=== PATIENT | female | born 1965 | race Caucasian/White ===

== ENCOUNTER 2018-05-04 13:57 | Inpatient (IN) ==
--- NOTE | 2018-05-04 14:56 | Emergency Department Note ---
Disposition Clinical Impression: Facial numbness, Ptosis, right eyelid, Decreased patellar reflex Disposition: Admitted As Inpatient Condition: Fair Referrals: Shari Jacobs, CHILD CARE WORKER [Primary Care Provider] - Forms: ED Satisfaction Letter Time of Disposition: 16:34 General Adult HPI - General Chief complaint: ED Neuro Symptoms/Deficit Stated complaint: Neuro symptoms x1 week Time Seen by Provider: 05/04/18 14:17 Source: patient Limitations: no limitations Nursing Notes Reviewed: Yes Vital Signs Reviewed: Yes - History of Present Illness HPI Narrative: Patient presents to the ED from neurology. Patient has been having trouble for the past week. She has a drooping right eye. Numbness in her face. Numbness in her hands and wrists. She has been seen at [facility] and at her primary doctor's office. She had a head CT that was negative. She was diagnosed with a UTI at one point. Patient followed up with neurology today as an outpatient. They were concerned about myasthenia gravis. She states her blood test ruled that out. 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 Neurology requesting lumbar puncture and admission. Pain Scale: 7 - Related Data Previous Rx's Medication Instructions Recorded Indomethacin [Indocin] 25 mg PO Q6HR PRN #20 capsule 03/13/18 Penicillin VK 500 mg PO QID #40 tablet 03/13/18 Allergies Allergy/AdvReac Type Severity Reaction Status Date / Time No Known Allergies Allergy Verified 03/15/18 12:26 All systems ED: reviewed and negative except as stated. Constitutional: Denies: fever Cardiovascular: Denies: chest pain Respiratory: Denies: dyspnea Gastrointestinal: Denies: vomiting, diarrhea Genitourinary: Denies: dysuria Neurological: Reports: weakness, numbness, paresthesias, abnormal gait Past Medical History - Past Medical History Attestation: Yes The following information was validated with the patient. Source: patient Medical history: Reports: other Surgical history: Reports: no surgical history Psychiatric history: Reports: anxiety PLATE SHEAR OPERATOR history: Reports: no PLATE SHEAR OPERATOR history - Social History Smoking Status: Never smoker Smokeless Tobacco Status: No Alcohol use: Reports: occasionally Drug use: Reports: none Physical Exam Patient awake and alert laying in bed in no distress. She is noted to stutter. He has difficulty finding her words at times. Drooping of the right eyelid. She is able to hold it open. Patient states she is unable to track with her eyes. Her pupils do react. She has significantly diminished patellar reflexes. Symmetric trench trimmer fine strength. No drift. No drift of the legs either. - General Limitations: no limitations General appearance: alert, in no apparent distress - Head Head exam: atraumatic, normocephalic - ENT ENT exam: normal oropharynx - Neck Neck exam: Present: normal inspection - Chest Chest inspection: Present: normal inspection - Respiratory Respiratory exam: Present: normal lung sounds bilaterally - Cardiovascular Cardiovascular exam: Present: regular rate, normal rhythm, normal heart sounds - Abdominal Exam Abdominal exam: Present: soft, Non-Tender - Neurological Exam Neurological exam: Present: alert, oriented X3, CN II-XII intact - Psychiatric Psychiatric exam: Present: normal affect, normal mood - Skin Skin exam: Present: warm, dry Course - Reevaluation(s) Reevaluation #1: Head CT from 05/01 showed no acute abnormality Time: 15:15 Reevaluation #2: Lumbar puncture performed by Dr. Galvez and Dr. London with my supervision. I was present for the entire procedure. CSF pending. I have called a consult to neurology Dr. Brown. Awaiting hospitalist call back. Time: 16:33 - Consultations Consultation #1: Sofia Vines accepts Time: 16:43 Vital Signs Temperature 98.1 F 05/04/18 14:01 Pulse Rate 75 05/04/18 14:01 Respiratory Rate 18 05/04/18 14:01 Blood Pressure 133/85 05/04/18 14:01 O2 Sat by Pulse Oximetry 99 05/04/18 14:01 Temperature 98.1 F 05/04/18 14:01 Pulse Rate 75 05/04/18 14:01 Respiratory Rate 18 05/04/18 14:01 Blood Pressure 133/85 05/04/18 14:01 O2 Sat by Pulse Oximetry 99 05/04/18 14:01 Oxygen Delivery Oxygen Delivery Room Air Medical Decision Making - Lab Data Lab results reviewed: Yes I reviewed the patient's lab results. Result diagrams: 05/04/18 15:02 05/04/18 15:02 Lab Results 05/04/18 05/04/18 05/04/18 Range/Units 15:02 15:02 15:02 WBC 5.8 (4.3-11.1) K/mcL RBC 4.28 (3.82-4.97) M/mcL Hgb 14.3 (11.5-15.4) g/dL Hct 41.4 (35.3-44.9) % MCV 96.7 (83.0-100.0) fL MCH 33.4 H (28.0-33.3) pg MCHC 34.5 (31.6-35.5) g/dL RDW 12.0 (11.5-14.5) % Plt Count 228 (140-400) K/mcL MPV 9.2 L (9.4-12.4) fL Immature Gran % 0.3 (0-4) % Seg Neutrophils % 84.7 % Lymphocytes % 14.3 % Monocytes % 0.7 % Eosinophils % 0.0 % Basophils % 0.0 % Neutrophils # 4.9 (1.6-8.9) K/mcL Lymphocytes # 0.8 (0.6-4.6) K/mcL Monocytes # 0.0 (0.0-1.3) K/mcL Eosinophils # 0.0 (0.0-0.6) K/mcL Basophils # 0.0 (0.0-0.2) K/mcL ESR 38 H (0-15) mm/hr PT (9.4-12.1) Seconds INR APTT (26.0-36.0) Seconds Sodium 140 (136-145) mEq/L Potassium 3.8 (3.5-5.1) mEq/L Chloride 105 (98-107) mEq/L Carbon Dioxide 24 (23-29) mEq/L BUN 22 H (6-20) mg/dL Creatinine 0.62 (0.60-1.20) mg/dL Est GFR ( Amer) > 60 (> 60) Est GFR (Non-Af Amer) > 60 (> 60) BUN/Creatinine Ratio 35 H (6-26) Glucose 166 H (70-105) mg/dL Calculated Osmolality 297 (280-300) Calcium 9.7 (8.6-10.3) mg/dL C-Reactive Protein < 5 (Less than 10) mg/L 05/04/18 Range/Units 15:02 WBC (4.3-11.1) K/mcL RBC (3.82-4.97) M/mcL Hgb (11.5-15.4) g/dL Hct (35.3-44.9) % MCV (83.0-100.0) fL MCH (28.0-33.3) pg MCHC (31.6-35.5) g/dL RDW (11.5-14.5) % Plt Count (140-400) K/mcL MPV (9.4-12.4) fL Immature Gran % (0-4) % Seg Neutrophils % % Lymphocytes % % Monocytes % % Eosinophils % % Basophils % % Neutrophils # (1.6-8.9) K/mcL Lymphocytes # (0.6-4.6) K/mcL Monocytes # (0.0-1.3) K/mcL Eosinophils # (0.0-0.6) K/mcL Basophils # (0.0-0.2) K/mcL ESR (0-15) mm/hr PT 12.6 H (9.4-12.1) Seconds INR 1.1 APTT 27.2 (26.0-36.0) Seconds Sodium (136-145) mEq/L Potassium (3.5-5.1) mEq/L Chloride (98-107) mEq/L Carbon Dioxide (23-29) mEq/L BUN (6-20) mg/dL Creatinine (0.60-1.20) mg/dL Est GFR ( Amer) (> 60) Est GFR (Non-Af Amer) (> 60) BUN/Creatinine Ratio (6-26) Glucose (70-105) mg/dL Calculated Osmolality (280-300) Calcium (8.6-10.3) mg/dL C-Reactive Protein (Less than 10) mg/L Critical Care Time Critical Care Time: Yes Total Critical Care Time: 35 Attestation: Critical care performed: Time is exclusive of separately billable procedures. Time includes: direct patient care, patient reassessment, coordination of patient care, interpretation of data (laboratory data, radiology data, and respiratory data), review of patient's medical records, medical consultation and documentation of patient care. Procedures included in critical care time: Procedures excluded from critical care time:
[2018-05-04 15:22] LABS: Hematocrit 41.4 % (35.3-44.9); Hemoglobin 14.3 g/dL (11.5-15.4); Immature Granulocytes % 0.3 % (0-4); Lymphocytes # 0.8 K/mcL (0.6-4.6); Lymphocytes % 14.3 %; Mean Corpuscular HGB Conc 34.5 g/dL (31.6-35.5); Mean Corpuscular Hemoglobin 33.4 pg (28.0-33.3); Mean Corpuscular Volume 96.7 fL (83.0-100.0); Mean Platelet Volume 9.2 fL (9.4-12.4); Monocytes % 0.7 %; Neutrophils # 4.9 K/mcL (1.6-8.9); Platelet Count 228 K/mcL (140-400); Red Blood Count 4.28 M/mcL (3.82-4.97); Segmented Neutrophils % 84.7 %
[2018-05-04 15:28] LABS: INR 1.1; Prothrombin Time 12.6 Seconds (9.4-12.1)
[2018-05-04 15:30] LABS: Activated Partial Thrombo Time 27.2 Seconds (26.0-36.0)
[2018-05-04 15:45] LABS: BUN/Creatinine Ratio 35 (6-26); Blood Urea Nitrogen 22 mg/dL (6-20); C-Reactive Protein < 5 mg/L (Less than 10); Calcium 9.7 mg/dL (8.6-10.3); Carbon Dioxide 24 mEq/L (23-29); Chloride 105 mEq/L (98-107); Glucose 166 mg/dL (70-105); Osmolality,Calculated 297 (280-300); Potassium 3.8 mEq/L (3.5-5.1); Sodium 140 mEq/L (136-145); eGFR For Non-African Americans > 60 (> 60)
[2018-05-04 16:35] LABS: Red Blood Cell,CSF < 0.002 M/mcL
--- NOTE | 2018-05-04 16:35 | Emergency Department Note ---
Disposition Clinical Impression: Facial numbness, Ptosis, right eyelid, Decreased patellar reflex Disposition: Admitted As Inpatient Condition: Fair Referrals: Shari Jacobs, FORGING OPERATOR [Primary Care Provider] - Forms: ED Satisfaction Letter General Adult HPI - General Chief complaint: ED Neuro Symptoms/Deficit Stated complaint: Neuro symptoms x1 week Time Seen by Provider: 05/04/18 14:17 Source: patient Limitations: no limitations - History of Present Illness Pain Scale: 7 - Related Data Previous Rx's Medication Instructions Recorded Indomethacin [Indocin] 25 mg PO Q6HR PRN #20 capsule 03/13/18 Penicillin VK 500 mg PO QID #40 tablet 03/13/18 Allergies Allergy/AdvReac Type Severity Reaction Status Date / Time No Known Allergies Allergy Verified 03/15/18 12:26 Constitutional: Denies: fever Cardiovascular: Denies: chest pain Respiratory: Denies: dyspnea Gastrointestinal: Denies: vomiting, diarrhea Genitourinary: Denies: dysuria Neurological: Reports: weakness, numbness, paresthesias, abnormal gait Past Medical History - Past Medical History Medical history: Reports: other Surgical history: Reports: no surgical history Psychiatric history: Reports: anxiety PSYCHOLOGY PHYSICIAN history: Reports: no PSYCHOLOGY PHYSICIAN history - Social History Smoking Status: Never smoker Smokeless Tobacco Status: No Alcohol use: Reports: occasionally Drug use: Reports: none Physical Exam - General Limitations: no limitations General appearance: alert, in no apparent distress Course Vital Signs Temperature 98.1 F 05/04/18 14:01 Pulse Rate 75 05/04/18 14:01 Respiratory Rate 18 05/04/18 14:01 Blood Pressure 133/85 05/04/18 14:01 O2 Sat by Pulse Oximetry 99 05/04/18 14:01 Temperature 98.1 F 05/04/18 14:01 Pulse Rate 75 05/04/18 14:01 Respiratory Rate 18 05/04/18 14:01 Blood Pressure 133/85 05/04/18 14:01 O2 Sat by Pulse Oximetry 99 05/04/18 14:01 Oxygen Delivery Oxygen Delivery Room Air Procedures - Lumbar Puncture Consent Obtained: written consent Time Out Performed: Yes Patient Position: upright Skin Prep: Povidone-Iodine 1% Local Anesthetic: lidocaine 1% Amount of anesthesia used (mL): 5 Spinal Needle Gauge: 22G Interspace Used: L4-L5 Fluid Initially Obtained: clear Additional Comments: initial attempt by Dr. Plager, fluid collected by Dr. Galvez Complications: Need to have other Practitioner Attempt Medical Decision Making - Lab Data Result diagrams: 05/04/18 15:02 05/04/18 15:02 Lab Results 05/04/18 05/04/18 05/04/18 Range/Units 15:02 15:02 15:02 WBC 5.8 (4.3-11.1) K/mcL RBC 4.28 (3.82-4.97) M/mcL Hgb 14.3 (11.5-15.4) g/dL Hct 41.4 (35.3-44.9) % MCV 96.7 (83.0-100.0) fL MCH 33.4 H (28.0-33.3) pg MCHC 34.5 (31.6-35.5) g/dL RDW 12.0 (11.5-14.5) % Plt Count 228 (140-400) K/mcL MPV 9.2 L (9.4-12.4) fL Immature Gran % 0.3 (0-4) % Seg Neutrophils % 84.7 % Lymphocytes % 14.3 % Monocytes % 0.7 % Eosinophils % 0.0 % Basophils % 0.0 % Neutrophils # 4.9 (1.6-8.9) K/mcL Lymphocytes # 0.8 (0.6-4.6) K/mcL Monocytes # 0.0 (0.0-1.3) K/mcL Eosinophils # 0.0 (0.0-0.6) K/mcL Basophils # 0.0 (0.0-0.2) K/mcL ESR 38 H (0-15) mm/hr PT (9.4-12.1) Seconds INR APTT (26.0-36.0) Seconds Sodium 140 (136-145) mEq/L Potassium 3.8 (3.5-5.1) mEq/L Chloride 105 (98-107) mEq/L Carbon Dioxide 24 (23-29) mEq/L BUN 22 H (6-20) mg/dL Creatinine 0.62 (0.60-1.20) mg/dL Est GFR ( Amer) > 60 (> 60) Est GFR (Non-Af Amer) > 60 (> 60) BUN/Creatinine Ratio 35 H (6-26) Glucose 166 H (70-105) mg/dL Calculated Osmolality 297 (280-300) Calcium 9.7 (8.6-10.3) mg/dL C-Reactive Protein < 5 (Less than 10) mg/L 05/04/18 Range/Units 15:02 WBC (4.3-11.1) K/mcL RBC (3.82-4.97) M/mcL Hgb (11.5-15.4) g/dL Hct (35.3-44.9) % MCV (83.0-100.0) fL MCH (28.0-33.3) pg MCHC (31.6-35.5) g/dL RDW (11.5-14.5) % Plt Count (140-400) K/mcL MPV (9.4-12.4) fL Immature Gran % (0-4) % Seg Neutrophils % % Lymphocytes % % Monocytes % % Eosinophils % % Basophils % % Neutrophils # (1.6-8.9) K/mcL Lymphocytes # (0.6-4.6) K/mcL Monocytes # (0.0-1.3) K/mcL Eosinophils # (0.0-0.6) K/mcL Basophils # (0.0-0.2) K/mcL ESR (0-15) mm/hr PT 12.6 H (9.4-12.1) Seconds INR 1.1 APTT 27.2 (26.0-36.0) Seconds Sodium (136-145) mEq/L Potassium (3.5-5.1) mEq/L Chloride (98-107) mEq/L Carbon Dioxide (23-29) mEq/L BUN (6-20) mg/dL Creatinine (0.60-1.20) mg/dL Est GFR ( Amer) (> 60) Est GFR (Non-Af Amer) (> 60) BUN/Creatinine Ratio (6-26) Glucose (70-105) mg/dL Calculated Osmolality (280-300) Calcium (8.6-10.3) mg/dL C-Reactive Protein (Less than 10) mg/L
[2018-05-04 16:36] LABS: Appearance,CSF Clear (Clear)
[2018-05-04 17:00] LABS: Glucose,CSF 80 mg/dL (40-70); Total Protein,CSF 75 mg/dL (15-45)
[2018-05-04] MEDS ORDERED: IVIG (wt based) 5 GM/50 ML INFUS..BTL IVC ONE (17:29)
[2018-05-04] MEDS ORDERED: Immune Globulin, Gamma (IGG) 5 GM/50 ML INFUS..BTL IVC ONE (17:45)
[2018-05-04] MEDS ORDERED: Immune Globulin, Gamma (IGG) 20 GM/200 ML INFUS..BTL IVC ONE (17:45)
[2018-05-04] MEDS ORDERED: Naloxone 0.4 MG/ML INJ IVP PRN (17:57)
--- NOTE | 2018-05-04 18:03 | Internal Med History&Physical ---
Date of Encounter: 05/04/18 Time of Encounter: 17:45 Internal Medicine - H&P: HPI Chief complaint: Progressive weakness and numbness Admitted From: Emergency Dept Plans for Post Hospital Care: Home History of present illness: Ms. Jacob is a 52 year old female patient with no significant past medical history presented to the ER from neurology office with complaints of worsening weakness and numbness involving her cranial nerves and facial muscles. Patient has been having symptoms for about a week now. She had dental work done on the left side than the day prior to symptom onset. At that time she received local anesthetic but it wore off soon after. She never had any issues on the left side of her face. However the next day she noticed drooping of her right eyelid and she had difficulty opening her eye. She also began to have slurred speech and numbness in her hands. She does not have a taste sensation at this time and cannot feel anything while she is swallowing. She recently had an upper respiratory infection. She recovered from that well. No nausea or vomiting. No diarrhea. No abdominal pain or chest pain. She has gait imbalance when she walks but can move her legs without any weakness while lying down. No recent travel. Past Med Surg Social Fam HX - Past Medical History Attestation: Yes The following information was validated with the patient. Source: patient Medical history: other Additional medical history: Anxiety Psychiatric history: anxiety - Past Surgical History Surgical History: no surgical history Additional surgical history: D & C. Hand surgery - Social History Smoking Status: Never smoker Smokeless Tobacco Status: No Alcohol use: occasionally Drug use: none - Additional Family History Additional family history: Family history reviewed and found to be noncontributory at this time Internal Medicine - H&P: Meds ALPRAZolam [Xanax 0.5 MG Tablet] 0.5 mg PO TID PRN 05/04/18 [History] predniSONE [PredniSONE] See Taper PO AD 05/04/18 [History] Allergy/AdvReac Type Severity Reaction Status Date / Time No Known Allergies Allergy Verified 03/15/18 12:26 All Systems PM: A 10-system review of systems was performed and is negative for pertinent findings except as documented above in the HPI. - Constitutional Constitutional: no chills, no fever(s), no night sweats - EENT Eyes: blurry vision, no change in vision, no discharge, no pain, no photophobia Ears: no ear discharge, no ear pain, no tinnitus Nose, mouth and throat: no dysphagia, no nasal discharge, no neck pain, no sore throat - Cardiovascular Cardiovascular ROS IM: no chest pain, no diaphoresis, no dyspnea, no lightheadedness, no palpitations, no syncope - Respiratory Respiratory: no cough, no dyspnea, no wheezing, no excessive phlegm production - Gastrointestinal Gastrointestinal: no abdominal pain, no diarrhea, no hematemesis, no hematochezia, no melena, no nausea, no vomiting - Genitourinary Genitourinary: no change in urinary stream, no dysuria, no flank pain, no hematuria - Musculoskeletal Musculoskeletal ROS IM: no numbness, no tingling - Integumentary Integumentary IM: no rash, no unusual bruising - Neurological Neurological ROS: abnormal gait, abnormal speech, focal weakness, numbness, paresthesias, no convulsions, no tingling, no tremor(s) - Hematologic/Lymphatic Hematologic/Lymphatic: no easy bruising - Constitutional Vitals: Temp Pulse Resp BP Pulse Ox 98.0 F 62 14 148/95 99 05/04/18 17:32 05/04/18 17:32 05/04/18 17:32 05/04/18 17:32 05/04/18 17:32 General appearance: Present: cooperative, mild distress, A&O X 3, pleasant, answers questions appropriately Exam: General: Patient is alert, mild distress, oriented x 3 Head: atraumatic, normocephalic, ENT: Mucous membranes moist Eye: Right ptosis, extraocular movements impaired on both sides. PERRL, no scleral icterus, no conjunctival injection Neck: normal inspection, trachea midline, full ROM, no carotid bruits Chest: normal inspection, symmetric chest rise Respiratory: Good respiratory effort. Normal breath sounds. No wheezing or crackles. Cardiovascular: Regular rate and rhythm. s1 and s2 normal No clicks, rubs, gallops, or murmurs. No pedal edema Abdomen: Abdomen is soft, nontender. Bowel sounds are present Musculoskeletal: Spontaneously moving all extremities Skin: warm, dry, intact. Neuro: Alert oriented x 3. no signs of facial droop. Patient does have some impaired speech. No clonus. Normal strength in all 4 extremities. Psych: Patient's affect is anxious Internal Med - H&P Results - Labs CBC & Chem 7: 05/04/18 15:02 05/04/18 15:02 Labs: Short CBC 05/04/18 Range/Units 15:02 WBC 5.8 (4.3-11.1) K/mcL Hgb 14.3 (11.5-15.4) g/dL Hct 41.4 (35.3-44.9) % Plt Count 228 (140-400) K/mcL Neutrophils # 4.9 (1.6-8.9) K/mcL BMP 05/04/18 15:02 Sodium 140 Potassium 3.8 Chloride 105 Carbon Dioxide 24 BUN 22 H Creatinine 0.62 Glucose 166 H Calcium 9.7 - Impressions CT scan of the head done on 05/01 showed no acute intracranial abnormality. - Assessment and plan (1) Speech impairment Current Visit: Yes Status: Acute Assessment and plan: Patient having symptoms of right-sided ptosis, difficulty swallowing and speech impairment along with numbness in upper extremities concerning for possible biliary and of Guillain-[place] syndrome: pharyngeal cervical -brachial weakness/ acute bulbar palsy etc. Symptoms are asymmetrical. Spinal fluid analysis does show increased protein with <3 WBC. Discussed with neurology. Given the patient's symptomatology and possible serious illness that is developing, recommended to go ahead and start treatment for possible GBS variant with IVIG. Monitor closely for any allergic reactions. Also monitor NIFs closely and transferred to ICU if they worsen. Explained to the patient prognosis and treatment plan. Expressed understanding. High risk for complications. Low threshold for endotracheal intubation. Qualifiers: Speech disturbance type: other speech disturbance Qualified Code(s): R47.89 - Other speech disturbances (2) Ptosis, right eyelid Current Visit: Yes Status: Acute Assessment and plan: Patient has ptosis of right eyelid. Supportive care. Treat underlying illness. (3) Dysphagia Current Visit: Yes Status: Acute Assessment and plan: Patient having trouble swallowing solid foods but able to take soft diet and soups. Will monitor closely while she is eating. If she has trouble swallowing, will keep her nothing by mouth and consult speech therapy. Qualifiers: Dysphagia type: oropharyngeal phase Qualified Code(s): R13.12 - Dysphagia, oropharyngeal phase - Time Spent With Patient Total time spent is greater than 50% in coordination of care (as documented) at patient's floor/unit and/or counseling patient:
[2018-05-05 07:03] LABS: Basophils % 0.5 %; Eosinophils % 0.2 %; Hematocrit 37.6 % (35.3-44.9); Immature Granulocytes % 0.2 % (0-4); Lymphocytes # 2.7 K/mcL (0.6-4.6); Lymphocytes % 42.3 %; Mean Corpuscular HGB Conc 33.5 g/dL (31.6-35.5); Mean Corpuscular Hemoglobin 32.7 pg (28.0-33.3); Mean Corpuscular Volume 97.7 fL (83.0-100.0); Mean Platelet Volume 9.4 fL (9.4-12.4); Monocytes # 0.5 K/mcL (0.0-1.3); Monocytes % 8.1 %; Neutrophils # 3.1 K/mcL (1.6-8.9); Platelet Count 200 K/mcL (140-400); Red Blood Count 3.85 M/mcL (3.82-4.97); Red Cell Distribution Width 11.9 % (11.5-14.5); Segmented Neutrophils % 48.7 %
[2018-05-05 07:07] LABS: Hemoglobin 12.6 g/dL (11.5-15.4)
[2018-05-05 07:23] LABS: BUN/Creatinine Ratio 30 (6-26); Blood Urea Nitrogen 20 mg/dL (6-20); Calcium 9.3 mg/dL (8.6-10.3); Carbon Dioxide 25 mEq/L (23-29); Chloride 108 mEq/L (98-107); Glucose 88 mg/dL (70-105); Osmolality,Calculated 290 (280-300); Potassium 3.4 mEq/L (3.5-5.1); Sodium 139 mEq/L (136-145); eGFR For Non-African Americans > 60 (> 60)
--- NOTE | 2018-05-05 08:33 | Neurology - Consult Note ---
Addendum entered and electronically signed by Brendon Leonard MD 05/05/18 11:38: Patient seen and examined in the presence of Dr. Bill French, case discussed and imaging studies reviewed together. I agree with his history taking, physical examination, assessment and plan, outline below. In [facility], this is a 52 year old woman who developed acute onset of right eyelid drooping, diplopia, headaches, facial and arm hand numbness, unsteady gait about one week ago, which has persisted until now. She does have previous history of upper respiratory symptoms about a week or so before onset of current symptoms. Neurological examination showed ophthalmoplegia areflexia, unsteady. 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 CSF study with elevated protein level of 75 with normal WBC support the diagnosis. -Will check other neurological conditions that could mimic the conditions, including MRI of brain with and without contrast, laboratory studies as ordered, and outpatient EMG/NCV study. -IVig 0.4g/kgday for 5 days. -Currently the patient has no symptoms of breathing difficulty, if symptoms develop then need to monitor VFC and respiratory care -DVT prophylaxis if patient can not ambulate. -PT, swallow evaluation. -Neurology service will follow. Original Note: Date of Encounter: 05/05/18 Time of Encounter: 08:32 Assessment and Plan (1) Neurologic abnormality Current Visit: Yes Status: Acute - Patient initially presented with right-sided ptosis, speech impairment, difficulty swallowing, numbness in upper extremities - Symptoms noted to be symmetrical - Lumbar puncture was performed; CSF demonstrated an elevated glucose at 80 and a total protein of 75 - Patient was given 2 doses of Privigen - CSF cultures were ordered and are currently pending - Concern is for possible Guillain-Crivitz syndrome; patient recently had an upper respiratory infection - On exam, patient has horizontal and vertical gaze palsy, numbness in her hands bilaterally, and absent reflexes - Reports weakness in her anterior thighs, and is unable to walk for distances w ithout becoming off balance - Denies having any other focal deficits Plan: - Will order MRI with and without contrast - TSH, B12, vitamin B2, vitamin B6, ELHAM, anti-musk - Patient should continue immunoglobin therapy 0.4 g/kg per day for 5 days; patient will need daily BMP to monitor renal function History of Present Illness HPI: Sonam Jacob is a 52-year-old female with no significant PMH who presented to [facility] ED on 05/04/18 from the neurology office complaining of worsening weakness and numbness involving her facial muscles. She stated that the symptoms have been going on for approximately one week. Patient reported that she had dental work performed on the left the day prior to the onset of symptoms. At that time, she received local anesthetic, but it soon wore off. Patient denied having any previous issues on the left side of her face. The next day, she noticed drooping of her right eyelid and difficulty opening her eye. She also began to have slurred speech and numbness in her hands. Also noted that she had no taste and could not feel anything when she was swallowing. Reported a recent history of upper respiratory infection. Also noted gait imbalance when she walks. Upon arrival to the emergency department, patients vital signs were within normal limits. Laboratory analysis showed an elevated glucose at 166. Lumbar puncture was performed. CSF fluid was significant for an elevated glucose at 80, and a total protein of 75. Patient was given Privigen. CSF cultures currently pending. Patient was seen and examined at bedside this morning; patient states that she still feeling weakness in various areas of her body. She states that she has difficulty holding her right eye open, and prefers to keep a close. She also endorses some blurred vision. She is also unable to move her eyes in a direction. Also reports some difficulty swallowing, weakness in her anterior thighs, numbness and tingling in her hands bilaterally. She states that she initially had numbness and tingling in her feet, but this is since resolved. Patient also states that she has slurred speech. Denies having any headache, dizziness, vertigo, or confusion. No further complaints at this time. Past Med Surg Social Fam HX - Past Medical History Medical history: other Additional medical history: Anxiety Psychiatric history: anxiety - Past Surgical History Surgical History: no surgical history Additional surgical history: D & C. Hand surgery - Social History Smoking Status: Never smoker Smokeless Tobacco Status: No Alcohol use: occasionally Drug use: none Medications and Allergies ALPRAZolam [Xanax 0.5 MG Tablet] 0.5 mg PO TID PRN 05/04/18 [History] predniSONE [PredniSONE] See Taper PO AD 05/04/18 [History] Allergy/AdvReac Type Severity Reaction Status Date / Time No Known Allergies Allergy Verified 03/15/18 12:26 All Systems: The remainder of the systems were reviewed and are negative - Constitutional Constitutional ROS IM: as per HPI, headache(s), weakness - Eyes Eyes: bilateral: blurred vision, decreased vision, diplopia, itching, loss of vision - Musculoskeletal Musculoskeletal ROS IM: as per HPI, abnormal gait, muscle weakness, tingling - Neurological Neurological ROS: as per HPI, abnormal gait, focal weakness, headache(s), loss of vision, numbness, paresthesias, syncope, weakness, other visual disturbances Physical Examination - Vital Signs Vital Signs: Initial Vital Signs Temp Pulse Resp BP Pulse Ox 98.1 F 75 18 133/85 99 05/04/18 14:05/04/18 14:01 05/04/18 14:01 05/04/18 14:01 05/04/18 14:01 - Exam Exam: Ophthalmoplegia bilaterally, Reflexes absent Patient has right-sided ptosis; unable to keep her right eye open very long Reports diplopia if she keeps her right eye open for too long - Constitutional General appearance: comfortable - Neurologic Sensorimotor examination: intact Motor examination - right side: 5/5: deltoids, biceps, triceps, wrist flexion, wrist extension, senior payroll administrator, toe extension (EHL), plantarflexion Motor examination - left side: 5/5: deltoids, biceps, triceps, wrist flexion, wrist extension, senior payroll administrator, toe extension (EHL), plantarflexion Detailed sensory examination: intact Reflexes: Brachioradialis: 0, Patella: 0 Mental Status Examination: awake, alert, oriented to person, oriented to place, oriented to time, follows commands appropriately, answers questions appropriately Cranial Nerve Exam: ptosis: Right Cerebellar examination: dysarthria Results - Laboratory Findings CBC and BMP: 05/05/18 06:23 05/05/18 06:23 Abnormal lab findings: Abnormal lab results ESR 38 mm/hr (0-15) H 05/04/18 15:02 PT 12.6 Seconds (9.4-12.1) H 05/04/18 15:02 Potassium 3.4 mEq/L (3.5-5.1) L 05/05/18 06:23 Chloride 108 mEq/L (98-107) H 05/05/18 06:23 BUN/Creatinine Ratio 30 (6-26) H 05/05/18 06:23 CSF Glucose 80 mg/dL (40-70) H 05/04/18 16:15 CSF Total Protein 75 mg/dL (15-45) H 05/04/18 16:15 Consult Discharge Plan - Plan Referrals: Shari Jacobs, ISABELLA [Primary Care Provider] -
--- NOTE | 2018-05-05 10:03 | Internal Med Progress Note ---
<Connie Merritt P - Last Filed: 05/05/18 13:16> Hospitalist Progress Note - Encounter Date of Encounter: 05/05/18 Time of Encounter: 09:30 - Subjective Interval History: This is 52 years old female without any significant past medical history presented to ED for worsening weakness and numbness involving her face and mouth , difficulty to see with opening eye , especially trouble with right eye.She also admitted difficulty with the speech and problem with balance / gait .She has had some flu like respiratory symptoms a few weeks back .She further stated that she has had some dental procedure in left side last Tuesday and her symptom of numbness ,tingling and weakness started 1 day after the procedure. At ED patients vital signs were within normal limits. Laboratory analysis showed an elevated glucose at 166 , otherwie all normal report. Lumbar puncture was performed:CSF fluid was significant for an elevated glucose at 80, and a total protein of 75 serum TSH, B12 normal. CSF cultures currently pending. Patient was given Privigen IV immunoglobulin with suspicion of GBS. Today during my bedside visit, the patient was eating her breakfast, lying comfortably on the bed, oriented to time place and person, not in acute distress. She admitted that she has trouble to see with both eye opening, she has some trouble with walking and feels unsteady and uses cane to walk. She admits numbness in mouth and lips. Other symptoms are getting a little bit better except Right Eye . Her vitals are stable, afebrile. BP 122/78 , Sat 96%. - Exam Vitals: Temp Pulse Resp BP Pulse Ox 98.3 F 65 16 122/78 96 05/05/18 07:39 05/05/18 07:39 05/05/18 07:39 05/05/18 07:39 05/05/18 07:39 Exam: General: Patient is alert, mild distress, oriented x 3 Head: atraumatic, normocephalic, ENT: Mucous membranes moist Eye: Right ptosis, extraocular movements impaired on both sides. PERRL, no scleral icterus, no conjunctival injection, patient has some degree of horizontal and vertical gaze palsy, excess lacrimation +, hypersensitivity light +. Neck: normal inspection, trachea midline, full ROM, no carotid bruits Chest: normal inspection, symmetric chest rise Respiratory: Good respiratory effort. Normal breath sounds. No wheezing or crackles. Cardiovascular: Regular rate and rhythm. s1 and s2 normal No clicks, rubs, gallops, or murmurs. No pedal edema Abdomen: Abdomen is soft, nontender. Bowel sounds are present Musculoskeletal: Spontaneously moving all extremities Skin: warm, dry, intact. Neuro: Alert oriented x 3. no signs of facial droop. Patient does have some impaired speech. No clonus. Normal strength in all 4 extremities. Reflexes diminished/ sluggish in patella and ankle both side Psych: Patient's affect is anxious - Assessment and Plan (1) Numbness and tingling Current Visit: Yes Status: Acute Assessment and Plan: The patient has numbness and tingling in her face ,left arm and proximal part of lower activity for last 1 week. She does have ptosis in the right eye, gait brennon diogo, some sort of vertical and horizontal gaze palsy. Sluggish reflex noted in lower limb, but muscle power, sensation normal . The patient gives history of respiratory symptoms/Flue like symptoms a few weeks back. Neurology was consulted, they did LP and he started IVIG with suspicion of GBS syndrom Serum B12 and TSH are within normal limit CSF analysis showed: Elevated protein and glucose without elevated count, culture has been awaited. Neuro will follow up her regularly while she in in patient . (2) Ataxia Current Visit: Yes Status: Acute Assessment and Plan: The patient has problem with walking, ataxic gait without any other cerebellar signs( Romberg negative, Coordination normal) She is using cane while she walk, we will monitor her symptoms while she is in hospital. (3) Ptosis, right eyelid Current Visit: Yes Status: Acute Assessment and Plan: She has ptosis in the right eye, observe , - Time Spent with Patient Total time spent is greater than 50% in coordination of care (as documented) at patient's floor/unit and/or counseling patient: Internal Medicine: Result - Labs CBC & Chem 7: 05/05/18 06:23 05/05/18 06:23 Labs: Short CBC 05/04/18 05/05/18 Range/Units 15:02 06:23 WBC 5.8 6.4 (4.3-11.1) K/mcL Hgb 14.3 12.6 D (11.5-15.4) g/dL Hct 41.4 37.6 (35.3-44.9) % Plt Count 228 200 (140-400) K/mcL Neutrophils # 4.9 3.1 (1.6-8.9) K/mcL BMP 05/04/18 05/05/18 15:02 06:23 Sodium 140 139 Potassium 3.8 3.4 L Chloride 105 108 H Carbon Dioxide 24 25 BUN 22 H 20 Creatinine 0.62 0.66 Glucose 166 H 88 Calcium 9.7 9.3 - ABG Interpretation ABG results: PT/INR, D-dimer PT 12.6 Seconds (9.4-12.1) H 05/04/18 15:02 Consult Discharge Plan - Plan Referrals: Shari Jacobs, FL[employer] OPERATIONS INSPECTOR [Primary Care Provider] - 05/12/18 11:40 am <Dayne Hopkins - Last Filed: 05/05/18 15:33> Hospitalist Progress Note - Encounter Date of Encounter: 05/05/18 - Exam Vitals: Temp Pulse Resp BP Pulse Ox 97.9 F 66 16 131/85 97 05/05/18 15:06 05/05/18 15:06 05/05/18 15:06 05/05/18 15:06 05/05/18 15:06 - Assessment and Plan (1) Ptosis, right eyelid Current Visit: Yes Status: Acute (2) Speech impairment Current Visit: Yes Status: Acute (3) Dysphagia Current Visit: Yes Status: Acute - Time Spent with Patient Total time spent is greater than 50% in coordination of care (as documented) at patient's floor/unit and/or counseling patient: Internal Medicine: Result - Labs CBC & Chem 7: 05/05/18 06:23 05/05/18 06:23 Labs: Short CBC 05/05/18 Range/Units 06:23 WBC 6.4 (4.3-11.1) K/mcL Hgb 12.6 D (11.5-15.4) g/dL Hct 37.6 (35.3-44.9) % Plt Count 200 (140-400) K/mcL Neutrophils # 3.1 (1.6-8.9) K/mcL BMP 05/04/18 05/05/18 15:02 06:23 Sodium 140 139 Potassium 3.8 3.4 L Chloride 105 108 H Carbon Dioxide 24 25 BUN 22 H 20 Creatinine 0.62 0.66 Glucose 166 H 88 Calcium 9.7 9.3 - ABG Interpretation ABG results: PT/INR, D-dimer PT 12.6 Seconds (9.4-12.1) H 05/04/18 15:02 - Impressions Impressions Brain MRI 05/05/18 10:04 IMPRESSION: Mild chronic small vessel ischemic changes. No acute brain parenchymal abnormality. The marrow signal of the clivus and upper cervical vertebral bodies are low on T1-weighted images. This is a nonspecific finding. This sometimes can be normal in a young patient. Sometimes anemia or marrow infiltrative processes can have this finding. A patient in an immunocompromised state can have this appearance to the marrow. Clinically correlate. D/ / 05/05/2018 13:01:52 Jennifer Cortes MD / [facility] Interpreting Provider: Jennifer Cortes MD - Attending Attestation I examined this patient and my medical decision-making was reviewed with the Resident Physician Dr. Merritt. I agree with the documented findings, disposition and treatment plan as described except to the extent set forth below. Ms. Jacob is a 52 year old female patient with no significant past medical history presented to the ER from neurology office with complaints of worsening weakness and numbness involving her cranial nerves and facial muscles. Patient has been having symptoms for about a week now. She noticed drooping of her right eyelid and she had difficulty opening her eye. She also began to have slurred speech and numbness in her hands. She recently had an upper respiratory infection. She has gait imbalance when she walks but can move her legs without any weakness while lying down. No recent travel. She did c/p proximal muscle weakness.. She was admitted in the hospital and started on IV IG. Her symptoms little better today. Her slurred speech and weakness are better today. Gen: A, A O x 3 Chest: Diminished BS B/l Heart: S1S2 +RRR No murmurs Neuro: Proxiaml LE weakness, Rt side ptosis + a/p 1. Acute GBS Her symptoms are concerning for GBS CSF analysis also persistent with GBS Cont IV IG Improving slowly appreciate neurology recommendations Patient does need to stay in the hospital more than 2 midnights due to her complex medical problems. So we will change her to full admission today. I did review my colleague Dr. Bai's H & P including HPI, PMH, PSH, FH, SH, and ROS no changes noticed ___ <Dayne Hopkisn - Last Filed: 05/05/18 15:33> (2) Speech impairment Qualifiers: Speech disturbance type: other speech disturbance Qualified Code(s): R47.89 - Other speech disturbances (3) Dysphagia Qualifiers: Dysphagia type: oropharyngeal phase Qualified Code(s): R13.12 - Dysphagia, oropharyngeal phase
[2018-05-05] MEDS ORDERED: Gadolinium Contrast Agent (WT Based) IV PRN (10:04)
[2018-05-05] MEDS ORDERED: IVIG (wt based) 5 GM/50 ML INFUS..BTL IVC SCH (11:33)
[2018-05-05] MEDS: Immune Globulin, Gamma (IGG) 20 GM/200 ML INFUS..BTL IVC SCH (12:48)
[2018-05-05] MEDS: Immune Globulin, Gamma (IGG) 5 GM/50 ML INFUS..BTL IVC SCH (13:43)
[2018-05-05] MEDS: Artificial Tears SOLN 15 ML BOTTLE BOTH EYES SCH ×2 (14:44→20:24)
[2018-05-05] MEDS: Acetaminophen 325 MG TABLET PO PRN (20:23)
[2018-05-05] MEDS: *HR* HYDROcodone/Acet 5/325 mg TABLET PO PRN (22:41)
[2018-05-06] MEDS: *HR* HYDROcodone/Acet 5/325 mg TABLET PO PRN (04:11)
[2018-05-06] MEDS: Immune Globulin, Gamma (IGG) 20 GM/200 ML INFUS..BTL IVC SCH (08:49)
[2018-05-06] MEDS: Artificial Tears SOLN 15 ML BOTTLE BOTH EYES SCH ×4 (08:55→21:30)
--- NOTE | 2018-05-06 12:02 | Internal Med Progress Note ---
Hospitalist Progress Note - Encounter Date of Encounter: 05/06/18 Time of Encounter: 12:00 - Subjective Interval History: Patient still reported proptosis, diplopia, numbness/tingling, and weakness. But, overall symptoms have slightly improved with treatment. Patient denies fever, headache, or neck rigidity. - Exam Vitals: Temp Pulse Resp BP Pulse Ox 98.1 F 72 16 118/78 98 05/06/18 11:40 05/06/18 11:40 05/06/18 11:40 05/06/18 11:40 05/06/18 11:40 Exam: PHYSICAL EXAMINATION: GENERAL APPEARANCE: The patient is alert, oriented and in no acute distress. HEENT: Head is normocephalic. The sinuses are nontender. Pupils are equal and reactive. The nares are patent. Oropharynx clear without lesions. NECK: Supple without lymphadenopathy. HEART: Regular rate and rhythm. LUNGS: No crackles or wheezes are heard. ABDOMEN: Soft, nontender, nondistended with good bowel sounds heard. Inguinal area is normal. EXTREMITIES: Without cyanosis, clubbing or edema. NEUROLOGICAL: right ptosis and weak EOM, diminished pupil light reflex. decreased DTR on both sides. SKIN: Warm and dry without any rash. - Assessment and Plan (1) Merida Belle syndrome Current Visit: Yes Status: Suspected Assessment and Plan: 56-year-old female who recently had a dental work, and a reported URI presented with progressively worsening right-sided ptosis, diplopia, dysarthria, dysphagia, ataxia, numbness/tingling of hands. Lumbar puncture revealed elevat ed protein with normal cell count. Symptoms are highly suspicious for Merida Belle syndrome, a rare variant of Guillain-Sayre syndrome. - Patient received a total dose of IVIG, - Pending GQ1b antibody. neurology following, appreciate help. - Patient currently has no respiratory distress or shortness of breath. - Plan for total 5 dose of IVIG, anticipated discharge to rehabilitation on Tuesday. - Overall prognosis is good, discussed with patient about anticipated long recovery period, likely about 6 months. DVT Prophylaxis: Heparin sq. - Time Spent with Patient Total time spent is greater than 50% in coordination of care (as documented) at patient's floor/unit and/or counseling patient: Greater than 35 minutes Plan of Care Discussed with: patient Internal Medicine: Result - Labs CBC & Chem 7: 05/05/18 06:23 05/05/18 06:23 - ABG Interpretation ABG results: PT/INR, D-dimer PT 12.6 Seconds (9.4-12.1) H 05/04/18 15:02 - Impressions Impressions Brain MRI 05/05/18 10:04 IMPRESSION: Mild chronic small vessel ischemic changes. No acute brain parenchymal abnormality. The marrow signal of the clivus and upper cervical vertebral bodies are low on T1-weighted images. This is a nonspecific finding. This sometimes can be normal in a young patient. Sometimes anemia or marrow infiltrative processes can have this finding. A patient in an immunocompromised state can have this appearance to the marrow. Clinically correlate. D/ / 05/05/2018 13:01:52 Jennifer Cortes MD / [facility] Interpreting Provider: Jennifer Cortes MD Consult Discharge Plan - Plan Referrals: Shari Jacobs, PANAMA HAT SMEARER [Primary Care Provider] - 05/12/18 11:40 am
[2018-05-06] MEDS: Immune Globulin, Gamma (IGG) 5 GM/50 ML INFUS..BTL IVC SCH (12:12)
--- NOTE | 2018-05-06 14:51 | Neurology Progress Note ---
Date of Encounter: 05/06/18 Time of Encounter: 14:49 Assessment and Plan (1) Merida Belle syndrome Current Visit: Yes Status: Suspected This patient clinical symptoms as well as exam findings and CSF analysis seems to be consistent with Merida Belle variant of GBS. She seemed to be tolerating IVIG very well suggested to continue for total of 5 doses Continue to monitor the BUN/creatinine keep patient well hydrated Continue to monitor her breathing function as well as for any cardiac arrhythmias Clinically she seems to be stable at this time Other labs seems to be negative for any other metabolic abnormalities I would recommend that we should also add cytology to rule out CSF to exclude the possibility of any neoplastic process Though MRI of the brain did not shows any sign of meningeal irritation or inflammation Continue PT OT evaluation for gait and balance training Subjective Interval history: Patient is seen as an follow-up for her Merida Belle seems to be stable in fact numbness paresthesias is improving at the same time her ataxia is also improving she is still not able to move her eyes and continued to have double vision she is on day 2 of IVIG tolerating it well Objective - Constitutional Vitals: Temp Pulse Resp BP Pulse Ox 98.1 F 72 16 118/78 98 05/06/18 11:40 05/06/18 11:40 05/06/18 11:40 05/06/18 11:40 05/06/18 11:40 - Neurological Exam Sensorimotor examination: Present: intact Motor examination - right side: 5/5: deltoids, biceps, triceps, wrist flexion, wrist extension, cnc machine operator, hip flexors, tibialis Anterior, quadriceps, toe extension (EHL), plantarflexion Motor examination - left side: 5/5: deltoids, biceps, triceps, wrist flexion, wrist extension, cnc machine operator, toe extension (EHL), plantarflexion Sensation intact: Present: intact Reflexes: Biceps: 0, Triceps: 0, Brachioradialis: 0, Patella: 0, Achilles: 0 Mental Status Examination: Present: awake, alert, oriented to person, oriented to place, oriented to time, follows commands appropriately, answers questions appropriately Cranial Nerve Exam: ptosis: Right Cerebellar examination: Present: dysarthria Results - Laboratory Findings CBC and BMP: 05/05/18 06:23 05/05/18 06:23 Abnormal lab findings: Abnormal lab results ESR 38 mm/hr (0-15) H 05/04/18 15:02 PT 12.6 Seconds (9.4-12.1) H 05/04/18 15:02 Potassium 3.4 mEq/L (3.5-5.1) L 05/05/18 06:23 Chloride 108 mEq/L (98-107) H 05/05/18 06:23 BUN/Creatinine Ratio 30 (6-26) H 05/05/18 06:23 CSF Glucose 80 mg/dL (40-70) H 05/04/18 16:15 CSF Total Protein 75 mg/dL (15-45) H 05/04/18 16:15 - Diagnostic Findings Additional findings: MRI of the brain reported as negative Vitamin B12 folate TSH is also within normal limits Other antibodies including GM 1 as well as anti-musk antibodies are pending at this time Myasthenia panel is negative Consult Discharge Plan - Plan Referrals: Shari Jacobs, ISABELLA [Primary Care Provider] - 05/12/18 11:40 am
[2018-05-06] MEDS: *HR* Heparin 5,000 UNIT/ML VIAL SQ SCH (17:34)
[2018-05-07] MEDS: *HR* HYDROcodone/Acet 5/325 mg TABLET PO PRN ×3 (03:33→17:22)
[2018-05-07 05:23] LABS: BUN/Creatinine Ratio 19 (6-26); Blood Urea Nitrogen 13 mg/dL (6-20); Calcium 9.1 mg/dL (8.6-10.3); Carbon Dioxide 22 mEq/L (23-29); Chloride 103 mEq/L (98-107); Glucose 101 mg/dL (70-105); Osmolality,Calculated 280 (280-300); Potassium 3.7 mEq/L (3.5-5.1); Sodium 135 mEq/L (136-145); eGFR For Non-African Americans > 60 (> 60)
[2018-05-07] MEDS: *HR* Heparin 5,000 UNIT/ML VIAL SQ SCH ×2 (06:00→17:22)
[2018-05-07] MEDS: Artificial Tears SOLN 15 ML BOTTLE BOTH EYES SCH ×4 (08:37→20:24)
[2018-05-07] MEDS: Immune Globulin, Gamma (IGG) 5 GM/50 ML INFUS..BTL IVC SCH (08:37)
[2018-05-07 09:02] LABS: ANA IgG by ELISA DETECTED (None Detected)
[2018-05-07] MEDS: Immune Globulin, Gamma (IGG) 20 GM/200 ML INFUS..BTL IVC SCH (09:28)
--- NOTE | 2018-05-07 11:46 | Internal Med Progress Note ---
Hospitalist Progress Note - Encounter Date of Encounter: 05/07/18 Time of Encounter: 11:44 - Subjective Interval History: pt reported improved ptosis. - Exam Vitals: Temp Pulse Resp BP Pulse Ox 97.9 F 59 16 104/69 97 05/07/18 11:31 05/07/18 11:31 05/07/18 11:31 05/07/18 11:31 05/07/18 11:31 Exam: PHYSICAL EXAMINATION: GENERAL APPEARANCE: The patient is alert, oriented and in no acute distress. HEENT: Head is normocephalic. The sinuses are nontender. Pupils are equal and reactive. The nares are patent. Oropharynx clear without lesions. NECK: Supple without lymphadenopathy. HEART: Regular rate and rhythm. LUNGS: No crackles or wheezes are heard. ABDOMEN: Soft, nontender, nondistended with good bowel sounds heard. Inguinal area is normal. EXTREMITIES: Without cyanosis, clubbing or edema. NEUROLOGICAL: right ptosis and weak EOM, diminished pupil light reflex. decreased DTR on both sides. SKIN: Warm and dry without any rash. 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 Lumbar puncture revealed elevated protein with normal cell count. 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 - Patient received a total dose of IVIG, - Pending GQ1b antibody. neurology following, appreciate help. - Patient currently has no respiratory distress or shortness of breath. - Plan for total 5 dose of IVIG, anticipated discharge to rehabilitation on Tuesday. - Overall prognosis is good, discussed with patient about anticipated long recovery period, likely about 6 months. 05/07 No respiratory distress. cont IVIG, plan dc home tomorrow. DVT Prophylaxis: Heparin sq. - Time Spent with Patient Total time spent is greater than 50% in coordination of care (as documented) at patient's floor/unit and/or counseling patient: Greater than 35 minutes Plan of Care Discussed with: patient Internal Medicine: Result - Labs CBC & Chem 7: 05/05/18 06:23 05/07/18 03:51 Labs: BMP 05/07/18 03:51 Sodium 135 L Potassium 3.7 Chloride 103 Carbon Dioxide 22 L BUN 13 Creatinine 0.67 Glucose 101 Calcium 9.1 - ABG Interpretation ABG results: PT/INR, D-dimer PT 12.6 Seconds (9.4-12.1) H 05/04/18 15:02 Consult Discharge Plan - Plan Referrals: Shari Jacobs CNP [Primary Care Provider] - 05/12/18 11:40 am
[2018-05-08 04:45] LABS: Basophils % 0.4 %; Eosinophils % 0.9 %; Hemoglobin 13.3 g/dL (11.5-15.4); Immature Granulocytes % 0.2 % (0-4); Lymphocytes # 2.2 K/mcL (0.6-4.6); Lymphocytes % 48.8 %; Mean Corpuscular Hemoglobin 33.2 pg (28.0-33.3); Mean Corpuscular Volume 94.8 fL (83.0-100.0); Mean Platelet Volume 9.8 fL (9.4-12.4); Monocytes # 0.5 K/mcL (0.0-1.3); Monocytes % 10.5 %; Neutrophils # 1.8 K/mcL (1.6-8.9); Platelet Count 186 K/mcL (140-400); Red Blood Count 4.01 M/mcL (3.82-4.97); Red Cell Distribution Width 11.6 % (11.5-14.5); Segmented Neutrophils % 39.2 %
[2018-05-08 04:52] LABS: Blood Urea Nitrogen 16 mg/dL (6-20); Calcium 8.9 mg/dL (8.6-10.3); Carbon Dioxide 24 mEq/L (23-29); Chloride 104 mEq/L (98-107); Glucose 94 mg/dL (70-105); Osmolality,Calculated 281 (280-300); Potassium 3.9 mEq/L (3.5-5.1); Sodium 135 mEq/L (136-145)
[2018-05-08 05:19] LABS: BUN/Creatinine Ratio 26 (6-26); eGFR For Non-African Americans > 60 (> 60)
[2018-05-08] MEDS: *HR* Heparin 5,000 UNIT/ML VIAL SQ SCH (05:34)
[2018-05-08 08:03] VITALS: BP 131/77
[2018-05-08] MEDS: Immune Globulin, Gamma (IGG) 5 GM/50 ML INFUS..BTL IVC SCH (09:46)
[2018-05-08] MEDS: Artificial Tears SOLN 15 ML BOTTLE BOTH EYES SCH ×2 (09:57→13:11)
[2018-05-08] MEDS: Acetaminophen 325 MG TABLET PO PRN (10:12)
--- NOTE | 2018-05-08 10:54 | Neurology Progress Note ---
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 Suggest that she should continue to be monitored We will follow physical therapy recommendation for short-term rehabilitation versus home PTOT From neurology point patient is stable now After completion of 5 days of IVIG she could be discharged with follow-up in neurology in 3-4 weeks Explained to the patient in detail she agrees with the plan Subjective Interval history: Patient is seen as an follow-up for her Merida Belle seems to be stable in fact numbness paresthesias is improving at the same time her ataxia is also improving she is NOW able to move her eyes and continued to have double vision she is on day 5 of IVIG tolerating it well Objective - Constitutional Vitals: Temp Pulse Resp BP Pulse Ox 98.3 F 63 17 131/77 98 05/08/18 08:00 05/08/18 08:00 05/08/18 08:00 05/08/18 08:00 05/08/18 08:00 - Neurological Exam Sensorimotor examination: Present: intact Motor Examination: Present: grossly full strength in all extremities Motor examination - right side: 5/5: deltoids, biceps, triceps, wrist flexion, wrist extension, campus recruiting coordinator, hip flexors, tibialis Anterior, quadriceps, toe extension (EHL), plantarflexion Motor examination - left side: 5/5: deltoids, biceps, triceps, wrist flexion, wrist extension, campus recruiting coordinator, quadriceps, tibialis Anterior, toe extension (EHL), plantarflexion Sensation intact: Present: intact Reflexes: Biceps: 0, Triceps: 0, Brachioradialis: 0, Patella: 0, Achilles: 0 Mental Status Examination: Present: awake, alert, oriented to person, oriented to place, oriented to time, follows commands appropriately, answers questions appropriately Cranial nerve examination: Present: visual bustos intact, no facial asymmetry is present, no dysarthria (ophthalmoplegia, improvement wiht limited up gaze now as well as mild movment o right LR noted) Cranial Nerve Exam: ptosis: Right Cerebellar examination: Present: dysarthria Results - Laboratory Findings CBC and BMP: 05/08/18 03:58 05/08/18 03:58 Abnormal lab findings: Abnormal lab results ESR 38 mm/hr (0-15) H 05/04/18 15:02 PT 12.6 Seconds (9.4-12.1) H 05/04/18 15:02 Sodium 135 mEq/L (136-145) L 05/08/18 03:58 CSF Glucose 80 mg/dL (40-70) H 05/04/18 16:15 CSF Total Protein 75 mg/dL (15-45) H 05/04/18 16:15 ELHAM Screen DETECTED (None Detected) A 05/05/18 10:24 Consult Discharge Plan - Plan Referrals: Shari Jacobs, [employer]PERATOR [Primary Care Provider] - 05/12/18 11:40 am Prescriptions: Artificial Tears SOLN [Akwa Tears] 1 drop BOTH EYES QID #1 bottle
[2018-05-08] MEDS: Immune Globulin, Gamma (IGG) 20 GM/200 ML INFUS..BTL IVC SCH (11:38)
--- NOTE | 2018-05-08 15:03 | Discharge Summary ---
- NOTES TO OUTPATIENT PROVIDER Notes to Outpatient Provider: f/u with Neurology Dr. Onofre within 2 weeks. Orders not resulted at time of discharge: Pending orders 05/04/18 16:35 GM 1 Antibody Panel Routine 05/05/18 10:24 [place]HAM IgG JAYLYN rflx IFA Routine MuSK Antibody Routine Vitamin B2 (Riboflavin) Routine 05/06/18 14:53 Cytology Other [PTH] Stat Date of Encounter: 05/08/18 Time of Encounter: 15:00 - Discharge Diagnosis (1) Merida Belle syndrome Priority: Primary Status: Suspected Hospital course: Ms. Medel is a 82 year old female Patient presented to the emergency room after experiencing a fall. She also fell yesterday as well onto her left arm. At that time she was seen by her primary care physician who performed x-rays which were negative for fracture. Today the patient was at home and while she was walking with her walker she was witnessed to have lost her balance fell backwards and hit her head. She denied loss of consciousness and does not take blood thinners. She has home health assistance at home. She came to the emergency room for further evaluation. In the emergency room, vital signs were stable, CBC and BMP were within normal limits. CT of the C-spine and head CT both showed no acute abnormalities. Chest x-ray showed right lower lobe pneumonia. A discussion with the family regarding plan of care took place and the family decided that they would want patient to be admitted. Neurology was consulted and A lumbar puncture showed normal cell count with elevated protein level. 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 She received 5 day course of IVIG. Her symptoms have gradually improved. However, patient still has severe diplopia, which requires wearing eye patch. Patient will be discharged home. She was instructed to return or seek immediate medical assistance if she has difficulty breathing or worsening diplopia /proptosis. An anticipated prolonged recovery was also discussed with patient. 3 months Works excuse was provided. She will follow up with neurology within 2 weeks. Discharge discussed with: patient Time spent discussing smoking cessation with patient: more than 10 minutes - Time Spent with Patient Total time spent providing and/or coordinating discharge services: 45 mins. Greater than 30 minutes - Discharge Medications Prescriptions: Artificial Tears SOLN [Akwa Tears] 1 drop BOTH EYES QID #1 bottle Home Medications: ALPRAZolam [Xanax 0.5 MG Tablet] 0.5 mg PO TID PRN 05/04/18 [History] Artificial Tears SOLN [Akwa Tears] 1 drop BOTH EYES QID #1 bottle 05/08/18 [Rx] Allergies/Adverse Reactions: Allergy/AdvReac Type Severity Reaction Status Date / Time No Known Allergies Allergy Verified 03/15/18 12:26 Date of admission: 05/05/18 15:05 Primary care physician: Shari Jacobs CNP Consults: 05/04/18 16:29 Consult to Neurology [CONS] Stat Consulting Provider: Neurology [facility] Reason for Consult: hand and face numbness, concern for GBS Time Notified: 16:29 Call Completed: Yes 05/04/18 17:32 Consult to Respiratory Therapy [CONS] Routine Reason for Consult: Monitor NIF q4h Call Completed: No 05/08/18 08:52 OT [Consult to Occupational Therapy] [CONS] Routine Comment: Evaluate, develop and implement POC Reason for Consult: dc plan Does patient have active BEDREST order?: No Is patient medically & hemodynamically stable?: Yes Patient assessed for mobility or mobilized this visit?: Yes PT [Consult to Physical Therapy] [CONS] Routine Comment: Evaluate, develop and implement POC Reason for Consult: dc plan Does patient have active BEDREST order?: No Is patient medically & hemodynamically stable?: Yes Patient assessed for mobility or mobilized this visit?: Yes Anticipated date of discharge: 05/08/18 - Constitutional Vitals: Temp Pulse Resp BP Pulse Ox 98.3 F 63 17 131/77 98 05/08/18 08:00 05/08/18 08:00 05/08/18 08:00 05/08/18 08:00 05/08/18 08:00 General appearance: Present: cooperative, A&O X 3, pleasant, answers questions appropriately Exam: PHYSICAL EXAMINATION: GENERAL APPEARANCE: The patient is alert, oriented and in no acute distress. HEENT: Head is normocephalic. The sinuses are nontender. Pupils are equal and reactive. The nares are patent. Oropharynx clear without lesions. NECK: Supple without lymphadenopathy. HEART: Regular rate and rhythm. LUNGS: No crackles or wheezes are heard. ABDOMEN: Soft, nontender, nondistended with good bowel sounds heard. Inguinal area is normal. EXTREMITIES: Without cyanosis, clubbing or edema. NEUROLOGICAL: right ptosis and weak EOM, diminished pupil light reflex. decreased DTR on both sides. SKIN: Warm and dry without any rash. - Patient Status Disposition: Home, Self-Care Condition: Fair Functional capacity at discharge: independent ambulation Overall status at discharge: patient is progressing back to baseline - Discharge Instructions Follow Up With: Shari Jacobs CNP [Primary Care Provider] - 05/12/18 11:40 am - Diet and Activity Activity: increase activity as tolerated Diet: advance to your usual diet
[2018-05-09 15:51] LABS: ANA HEp-2 IgG IFA <1:80 (<1:80)
== END 2018-05-08 17:16 | disposition home or self-care (01) | DRG 49 ==
LOC: 3BNU 13:57 → EMEROOARM 13:57 → SUATTDRO 16:50 → 3BNU 17:28
PROVIDERS: ADMIT Hospitalist; ATTEND Family Medicine